=== PATIENT | male | born 1960 | race Hispanic/Latino ===

== ENCOUNTER 2024-03-15 09:36 | Inpatient (IN) | payer OTHER, MEDICARE ==
[~2024-03-15] VITALS: Ht 160 cm; Wt 89.0 kg
[2024-03-15] VITALS (8 sets, daily range): BP systolic 113–148; BP diastolic 53–85; PULSE 86–102; RESP 12–20; TEMP 98.7–99; O2SAT 95–100
[2024-03-15] MEDS ORDERED: ceFAZolin SODIUM 2 GM VIAL IVPB SCH (11:30)
[2024-03-15] MEDS ORDERED: HEParin 10,000 UNIT/10ML (1,000 UNIT/ML) VIAL IV ONE (12:43)
[2024-03-15] MEDS ORDERED: EPINEPHrine PF 1MG (1:1,000) 10 MG in 0.9% NACL 250ML 240 ML IV PRN ×3 (13:30→20:00)
[2024-03-15] MEDS ORDERED: NOREPINEPHRIN 8MG/250ML NS 250 ML IV PRN (13:30)
[2024-03-15] MEDS ORDERED: aminoCAProic ACID 5,000MG VIAL 15,000 MG in 0.9% NACL 500ML IV.SOLN 420 ML IV PRN (13:30)
[2024-03-15] MEDS ORDERED: ARTIFICAL TEARS SOL 15 ML OP PRN (14:30)
[2024-03-15] MEDS ORDERED: LACTULOSE 20 GM/30 ML UDCUP PO PRN (14:30)
[2024-03-15] MEDS ORDERED: NITROGLYCERIN 0.4 MG SL TAB SL PRN ×2 (14:30)
[2024-03-15] MEDS ORDERED: guaiFENesin SUGAR-FREE 100 MG/5 ML UDCUP PO PRN (14:30)
[2024-03-15] MEDS ORDERED: hydrALAZine 25MG TABLET PO PRN (14:30)
[2024-03-15] MEDS ORDERED: polyETHYLene GLYCol 3350 17 GM POWD.PACK PO PRN (14:30)
[2024-03-15] MEDS ORDERED: acetaMINOPHEN 325 MG TAB PO PRN ×2 (14:30)
[2024-03-15] MEDS ORDERED: LOPERAMIDE HCL 2 MG CAP PO PRN (14:30)
[2024-03-15] MEDS ORDERED: ONDANSETRON 4MG INJ IV PRN (14:30)
[2024-03-15] MEDS ORDERED: doCUSate SODIUM 100 MG CAP PO PRN (14:30)
[2024-03-15] MEDS ORDERED: ONDANSETRON 4MG INJ IVP PRN (14:30)
[2024-03-15 14:41] LABS: HEMATOCRIT 46.1 % (42-54); MEAN CORPUSCULAR HEMOGLOBIN 28.7 pg (27.0-33.0); MEAN CORPUSCULAR HGB CONC 32.8 g/dL (32.0-36.0); MEAN CORPUSCULAR VOLUME 87.6 fL (79-99); RED BLOOD CELL COUNT(AUTO) 5.26 MIL/uL (4.50-6.20); RED CELL DISTRIBUTION WIDTH 12.6 % (11.0-15.5); WHITE BLOOD COUNT (AUTO) 9.3 K/uL (4.8-10.8)
[2024-03-15] MEDS ORDERED: LIDOCAINE 2G/250ML 250 ML IV ONE (14:50)
[2024-03-15 14:51] LABS: INR 1.07 (0.85-1.15); PROTHROMBIN TIME 11.5 SEC (9.6-11.6)
[2024-03-15 14:53] LABS: PARTIAL THROMBOPLASTIN TIME 27.6 SEC (26.3-35.5)
[2024-03-15 14:54] LABS: ALBUMIN 3.6 g/dL (3.5-5.0); BILIRUBIN,TOTAL 0.6 mg/dL (0.2-1.0); CREATININE 1.2 mg/dL (0.5-1.3); POTASSIUM 4.1 mmol/L (3.5-5.1); TOTAL PROTEIN, SERUM 7.9 g/dL (6.0-8.3)
[2024-03-15 15:33] LABS: HEMOGLOBIN A1C 5.8 % (4.0-6.0)
[2024-03-15] MEDS: metoPROLOL tartRATE 25 MG TAB PO ONE (16:50)
[2024-03-15] MEDS ORDERED: HEParin 10,000 UNIT/10ML (1,000 UNIT/ML) VIAL ONE ×3 (19:28→20:39)
[2024-03-15] MEDS ORDERED: LIDOCAINE PF 100MG/5ML (2%) SYRINGE 5ML ONE ×2 (19:28→20:39)
[2024-03-15] MEDS ORDERED: proPOFol 10 MG/ML 20ML VIAL IV ONE (19:28)
[2024-03-15] MEDS ORDERED: aminoCAProic ACID 5,000MG VIAL ONE (19:28)
[2024-03-15] MEDS ORDERED: FENTanyl CITRate PF 50 MCG/1 ML 20ML VIAL IJ ONE (19:28)
[2024-03-15] MEDS ORDERED: SODIUM BICARB 50MEQ 50ML VIAL 200 ML ONE (19:28)
[2024-03-15] MEDS ORDERED: PROTAMINE SULFATE 10 MG/ML 25ML VIAL IV ONE ×2 (19:28→21:38)
[2024-03-15] MEDS ORDERED: EPINEPHrine PF 1MG (1:1,000) 1 MG/ML AMP ONE (19:28)
[2024-03-15] MEDS ORDERED: NOREPINEPHRINE BITARTRATE 1 MG/1 ML ML IV ONE (19:28)
[2024-03-15] MEDS ORDERED: rocuRONium bROMide 10MG/1ML 5ML VL ONE (19:29)
[2024-03-15] MEDS ORDERED: MIDAZOLAM HCL 1 MG/ML 2ML VIAL ONE (19:29)
[2024-03-15] MEDS ORDERED: GLUCAGON 1MG KIT 1 MG ML IM PRN (19:30)
[2024-03-15] MEDS ORDERED: ALBUMIN (HUMAN) 5% 250 ML IV PRN (19:30)
[2024-03-15] MEDS ORDERED: proPOFol 1000 MG/100 ML 100 ML IV PRN (19:30)
[2024-03-15] MEDS ORDERED: CALCIUM GLUC 1GM 1 GM in 0.9%NACL 50ML 50 ML IV PRN (19:30)
[2024-03-15] MEDS ORDERED: NOREPINEPHRINE BITARTRATE 8 MG in DEXTROSE 5%-WATER 250 ML IV PRN (19:30)
[2024-03-15] MEDS ORDERED: morPHINE 2 MG SYG IV PRN (19:30)
[2024-03-15] MEDS ORDERED: 0.9%NACL 10ML VIAL IVP PRN (19:30)
[2024-03-15] MEDS ORDERED: DEXTROSE 50%-WATER 50 ML DISP.SYRIN IV PRN (19:30)
[2024-03-15] MEDS ORDERED: morPHINE 4 MG SYG IV PRN (19:30)
[2024-03-15] MEDS ORDERED: INSULIN REGULAR, HUMAN 3ML 100 UNIT in 0.9%NACL 100ML 99 ML IV SCH ×2 (19:30→20:00)
[2024-03-15] MEDS ORDERED: MAGNESIUM HYDROXIDE 30 ML/UDCUP PO PRN (19:30)
[2024-03-15] MEDS ORDERED: POTASSIUM PHOS 15 mMOL+NS250ML 250 ML IV PRN (19:30)
[2024-03-15] MEDS ORDERED: acetaMINOPHEN 650 MG SUPPOSITORY RC PRN (19:30)
[2024-03-15] MEDS ORDERED: NITROGLYCERIN 50MG/D5W 250ML 250 BOT IV SCH (19:30)
[2024-03-15] MEDS ORDERED: aminoCAProic ACID 5,000MG VIAL 15,000 MG in 0.9% NACL 250ML 250 ML IV SCH (19:30)
[2024-03-15] MEDS: ceFAZolin SODIUM 3 GM VIAL IVPB ONE ×2 (19:50)
[2024-03-15] MEDS ORDERED: ceFAZolin SODIUM 1 GM VIAL ONE (20:02)
[2024-03-15] MEDS ORDERED: HEParin-NS 1,000 UNIT/500 ML 500 ML IV ONE (20:02)
[2024-03-15] MEDS ORDERED: PAPAVERINE HCL 30 MG/ML 2ML VIAL ONE (20:03)
[2024-03-15] MEDS ORDERED: AMIOdarone 150MG VIAL ONE (20:32)
[2024-03-15] MEDS ORDERED: ATROPINE 1MG SYG IVP ONE (20:37)
[2024-03-15] MEDS ORDERED: SODIUM BICARB 50MEQ 50ML VIAL 100 ML ONE (20:38)
[2024-03-15] MEDS ORDERED: FAMOTIDINE 20MG TAB PO SCH (21:00)
[2024-03-15] MEDS ORDERED: metoPROLOL tartRATE 25 MG TAB PO SCH (21:00)
[2024-03-15] MEDS ORDERED: VASOpressin 20 UNITS/ML 1ML VIAL ONE (21:13)
[2024-03-15] MEDS ORDERED: POTASSIUM CHLORIDE 20MEQ/100ML 100 ML IV ONE ×2 (21:30→22:01)
[2024-03-15] MEDS ORDERED: SODIUM BICARB 50MEQ 50ML VIAL 50 ML ONE (21:38)
[2024-03-15 23:07] LABS: HEMATOCRIT 39.4 % (42-54); MEAN CORPUSCULAR HEMOGLOBIN 28.3 pg (27.0-33.0); MEAN CORPUSCULAR VOLUME 85.8 fL (79-99); PLATELET COUNT (AUTO) 287 K/uL (130-400); RED BLOOD CELL COUNT(AUTO) 4.59 MIL/uL (4.50-6.20); RED CELL DISTRIBUTION WIDTH 12.8 % (11.0-15.5)
[2024-03-15 23:13] LABS: WHITE BLOOD COUNT (AUTO) 35.3 K/uL (4.8-10.8)
[2024-03-15] MEDS: dexmedeTOMIDine 400MCG/NS100ML IV SCH (23:15)
[2024-03-15] MEDS: INSULIN REGULAR, HUMAN 3ML 100 UNIT in 0.9%NACL 100ML 99 ML IV SCH (23:16)
[2024-03-15 23:17] LABS: INR 1.18 (0.85-1.15); PROTHROMBIN TIME 12.6 SEC (9.6-11.6)
[2024-03-15 23:18] LABS: PARTIAL THROMBOPLASTIN TIME 23.4 SEC (26.3-35.5)
[2024-03-15 23:19] LABS: CREATININE 1.3 mg/dL (0.5-1.3); MAGNESIUM 1.7 mg/dL (1.80-2.40); PHOSPHORUS 4.7 mg/dL (2.5-4.9); POTASSIUM 4.1 mmol/L (3.5-5.1)
[2024-03-15] MEDS: 0.9%NACL 1000ML 1,000 ML IV SCH (23:45)
[2024-03-15] MEDS: dexmedeTOMIDine 400MCG/NS100ML IV ONE (23:46)
[2024-03-15] MEDS: FAMOTIDINE 20MG VIAL IV SCH (23:51)
[2024-03-15] MEDS: doCUSate SODIUM 100 MG CAP PO ONE (23:52)
[2024-03-15] MEDS: ASPIRIN 81MG CHEW TAB NG ONE (23:53)
[2024-03-15] MEDS: ALBUMIN (HUMAN) 5% 250 ML IV SCH (23:54)
[2024-03-15] MEDS: FAMOTIDINE 20MG VIAL IV ONE (23:58)
[2024-03-16] VITALS (120 sets, daily range): BP systolic 82–134; BP diastolic 51–66; PULSE 76–101; RESP 7–33; TEMP 99.6–100.7; O2SAT 18–100
[2024-03-16] MEDS ORDERED: acetaMINOPHEN 1,000 MG/100 ML VIAL IV SCH
[2024-03-16] MEDS: 0.9% NACL 500ML IV.SOLN 500 ML IV SCH (00:04)
[2024-03-16] MEDS: MAGNESIUM 2GM PREMIX 50ML 50 ML IV PRN (00:12)
[2024-03-16] MEDS: MAGNESIUM 2GM PREMIX 50ML 50 ML IV ONE (00:16)
[2024-03-16] MEDS: ceFAZolin SODIUM 2 GM VIAL IVPB SCH (00:29)
[2024-03-16] MEDS: SODIUM BICARB 50MEQ 50ML VIAL IV PRN (00:31)
[2024-03-16] MEDS: SODIUM BICARB 50MEQ 50ML VIAL 100 ML ONE (01:24)
[2024-03-16 01:33] LABS: BAND NEUTROPHILS % (MANUAL) 5 % (0-2); LYMPHOCYTES % (MANUAL) 8 % (22-44); METAMYELOCYTES % 1 % (0-0); MONOCYTES % (MANUAL) 5 % (2-9); SEGMENTED NEUTROPHILS % 81 % (40-70); TOTAL CELLS COUNTED 100
[2024-03-16 01:34] LABS: MAN.DIFF COMMENT-IMPRESSION MANUAL DIFFERENTIAL; PLATELET MORPHOLOGY COMMENT ADEQUATE
[2024-03-16] MEDS: POTASSIUM CHLORIDE 20MEQ/100ML 100 ML IV PRN (03:31)
[2024-03-16 03:57] LABS: ABG BASE EXCESS -1.7 mmol/L (-2.0-3.0); ABG HCO3 21.3 mmol/L (21.0-28.0); ABG OXYGEN SATURATION 99.5 % (94.0-98.0); ABG PCO2 31 mmHg (35-48); ABG PH 7.457 (7.350-7.450); CARBON MONOXIDE 0.3 % (0.5-1.5); DEVICE COMMENT 4; HHb 0.5; PO2, ARTERIAL BG 471.3 mmHg (83.0-108.0)
[2024-03-16 03:57] LABS: ABG BASE EXCESS -2.8 mmol/L (-2.0-3.0); ABG OXYGEN SATURATION 99.9 % (94.0-98.0); ABG PCO2 38 mmHg (35-48); ABG PH 7.376 (7.350-7.450); CARBON MONOXIDE 0.5 % (0.5-1.5); DEVICE COMMENT 1; HHb 0.1; PO2, ARTERIAL BG 476.6 mmHg (83.0-108.0)
[2024-03-16 03:57] LABS: ABG BASE EXCESS 0.2 mmol/L (-2.0-3.0); ABG HCO3 24.3 mmol/L (21.0-28.0); ABG OXYGEN SATURATION 99.3 % (94.0-98.0); ABG PCO2 37 mmHg (35-48); CARBON MONOXIDE 0.7 % (0.5-1.5); HHb 0.7; PO2, ARTERIAL BG 251.5 mmHg (83.0-108.0); VENT MODE, BG SIMV,PS10 (ROOM AIR)
[2024-03-16 03:57] LABS: ABG BASE EXCESS 0.2 mmol/L (-2.0-3.0); ABG OXYGEN SATURATION 99.1 % (94.0-98.0); ABG PCO2 36 mmHg (35-48); CARBON MONOXIDE 0.6 % (0.5-1.5); DEVICE COMMENT ALINE; HHb 0.9; PO2, ARTERIAL BG 198.6 mmHg (83.0-108.0); VENT MODE, BG SIMVPS10 (ROOM AIR)
[2024-03-16 03:57] LABS: ABG BASE EXCESS -0.6 mmol/L (-2.0-3.0); ABG HCO3 22.1 mmol/L (21.0-28.0); ABG OXYGEN SATURATION 98.8 % (94.0-98.0); ABG PCO2 31 mmHg (35-48); ABG PH 7.473 (7.350-7.450); CARBON MONOXIDE 0.3 % (0.5-1.5); HHb 1.2; VENT MODE, BG SIMV,PS10 (ROOM AIR)
[2024-03-16 03:57] LABS: ABG BASE EXCESS 2.7 mmol/L (-2.0-3.0); ABG HCO3 26.4 mmol/L (21.0-28.0); ABG OXYGEN SATURATION 99.6 % (94.0-98.0); ABG PCO2 38 mmHg (35-48); ABG PH 7.465 (7.350-7.450); CARBON MONOXIDE 0 % (0.5-1.5); DEVICE COMMENT 3; HHb 0.4; PO2, ARTERIAL BG > 500.0 mmHg (83.0-108.0)
[2024-03-16 03:57] LABS: ABG BASE EXCESS -2.3 mmol/L (-2.0-3.0); ABG HCO3 23.4 mmol/L (21.0-28.0); ABG OXYGEN SATURATION 99.7 % (94.0-98.0); ABG PCO2 44 mmHg (35-48); ABG PH 7.349 (7.350-7.450); CARBON MONOXIDE 0.3 % (0.5-1.5); DEVICE COMMENT 2; HHb 0.3; PO2, ARTERIAL BG > 500.0 mmHg (83.0-108.0)
[2024-03-16 03:58] LABS: ABG BASE EXCESS -1.2 mmol/L (-2.0-3.0); ABG HCO3 23.4 mmol/L (21.0-28.0); ABG OXYGEN SATURATION 99.7 % (94.0-98.0); ABG PCO2 39 mmHg (35-48); ABG PH 7.394 (7.350-7.450); CARBON MONOXIDE 0.7 % (0.5-1.5); HHb 0.3; PO2, ARTERIAL BG > 500.0 mmHg (83.0-108.0); VENT MODE, BG SIMV, PS10 (ROOM AIR)
[2024-03-16 03:58] LABS: ABG BASE EXCESS -3.1 mmol/L (-2.0-3.0); ABG OXYGEN SATURATION 99.5 % (94.0-98.0); ABG PCO2 35 mmHg (35-48); CARBON MONOXIDE 0.6 % (0.5-1.5); HHb 0.5; PO2, ARTERIAL BG > 500.0 mmHg (83.0-108.0); VENT MODE, BG SIMV,PS10 (ROOM AIR)
[2024-03-16 04:00] LABS: ABG BASE EXCESS 0.6 mmol/L (-2.0-3.0); ABG HCO3 24.3 mmol/L (21.0-28.0); ABG PCO2 36 mmHg (35-48); ABG PH 7.442 (7.350-7.450); CARBON MONOXIDE 1.3 % (0.5-1.5); DEVICE COMMENT RR ALICIA; HHb 5.9; PO2, ARTERIAL BG 68.9 mmHg (83.0-108.0); VENT MODE, BG RA (ROOM AIR)
[2024-03-16 04:07] LABS: BASOPHILS # (AUTO) 0.03 K/uL (0.00-0.20); BASOPHILS % (AUTO) 0.1 % (0.0-5.0); EOSINOPHILS # (AUTO) 0.01 K/uL (0.00-0.70); HEMATOCRIT 36.3 % (42-54); IMMATURE GRANULOCYTE ABSOLUTE 0.09 K/uL (0-1); LYMPHOCYTES # (AUTO) 1.3 K/uL (1.0-4.8); LYMPHOCYTES % (AUTO) 6.6 % (21.0-51.0); MEAN CORPUSCULAR HEMOGLOBIN 28.2 pg (27.0-33.0); MEAN CORPUSCULAR HGB CONC 33.1 g/dL (32.0-36.0); MEAN CORPUSCULAR VOLUME 85.4 fL (79-99); MONOCYTES # (AUTO) 1.5 K/uL (0.1-1.0); MONOCYTES % (AUTO) 7.1 % (3.0-13.0); NEUTROPHILS # (AUTO) 17.5 K/uL (1.8-7.7); NEUTROPHILS % (AUTO) 85.8 % (40.0-77.0); PLATELET COUNT (AUTO) 256 K/uL (130-400); RED BLOOD CELL COUNT(AUTO) 4.25 MIL/uL (4.50-6.20); RED CELL DISTRIBUTION WIDTH 12.9 % (11.0-15.5); WHITE BLOOD COUNT (AUTO) 20.4 K/uL (4.8-10.8)
[2024-03-16 04:11] LABS: ABG BASE EXCESS 1.1 mmol/L (-2.0-3.0); ABG HCO3 24.9 mmol/L (21.0-28.0); ABG OXYGEN SATURATION 98.8 % (94.0-98.0); ABG PCO2 37 mmHg (35-48); ABG PH 7.444 (7.350-7.450); CARBON MONOXIDE 0.6 % (0.5-1.5); HHb 1.2; PO2, ARTERIAL BG 154.3 mmHg (83.0-108.0); VENT MODE, BG SIMV,PS10 (ROOM AIR)
[2024-03-16 04:33] LABS: CREATININE 1.6 mg/dL (0.5-1.3); MAGNESIUM 2.1 mg/dL (1.80-2.40); PHOSPHORUS 2.5 mg/dL (2.5-4.9); POTASSIUM 3.8 mmol/L (3.5-5.1)
[2024-03-16 04:49] LABS: INR 1.1 (0.85-1.15); PROTHROMBIN TIME 11.8 SEC (9.6-11.6)
[2024-03-16 04:50] LABS: PARTIAL THROMBOPLASTIN TIME 26.5 SEC (26.3-35.5)
[2024-03-16 05:17] LABS: ABG BASE EXCESS 2.9 mmol/L (-2.0-3.0); ABG HCO3 26.2 mmol/L (21.0-28.0); ABG OXYGEN SATURATION 98.4 % (94.0-98.0); ABG PCO2 36 mmHg (35-48); ABG PH 7.477 (7.350-7.450); CARBON MONOXIDE 0.1 % (0.5-1.5); HHb 1.6; PO2, ARTERIAL BG 148.6 mmHg (83.0-108.0); VENT MODE, BG SIMV,PS10 (ROOM AIR)
[2024-03-16 05:23] LABS: B-TYPE NATRIURETIC PEPTIDE 83 pg/mL (0-100)
[2024-03-16 06:20] LABS: ABG BASE EXCESS 3.8 mmol/L (-2.0-3.0); ABG HCO3 27.6 mmol/L (21.0-28.0); ABG OXYGEN SATURATION 98.6 % (94.0-98.0); ABG PCO2 39 mmHg (35-48); ABG PH 7.472 (7.350-7.450); CARBON MONOXIDE 0.4 % (0.5-1.5); HHb 1.4; PO2, ARTERIAL BG 145.7 mmHg (83.0-108.0); VENT MODE, BG SIMV PS10 (ROOM AIR)
[2024-03-16] MEDS ORDERED: COMPOUND IV MISC 1 EACH IVSOLN MISC PRN ×2 (07:00→12:30)
[2024-03-16 07:27] LABS: ABG BASE EXCESS 2.8 mmol/L (-2.0-3.0); ABG HCO3 26.1 mmol/L (21.0-28.0); ABG OXYGEN SATURATION 98.7 % (94.0-98.0); ABG PCO2 36 mmHg (35-48); ABG PH 7.481 (7.350-7.450); CARBON MONOXIDE 0.4 % (0.5-1.5); HHb 1.3; PO2, ARTERIAL BG 148.6 mmHg (83.0-108.0); VENT MODE, BG SIMV PS10 (ROOM AIR)
[2024-03-16] MEDS: acetaMINOPHEN 325 MG TAB PO PRN (07:45)
[2024-03-16] MEDS ORDERED: ASPIRIN 81 MG EC TAB PO SCH (09:00)
[2024-03-16] MEDS ORDERED: furoSEMIDE 20MG VIAL IV SCH (09:00)
[2024-03-16 09:54] LABS: ABG BASE EXCESS 3.4 mmol/L (-2.0-3.0); ABG HCO3 26.7 mmol/L (21.0-28.0); ABG OXYGEN SATURATION 98.8 % (94.0-98.0); ABG PCO2 36 mmHg (35-48); ABG PH 7.485 (7.350-7.450); CARBON MONOXIDE 0.6 % (0.5-1.5); HHb 1.2; PO2, ARTERIAL BG 151.1 mmHg (83.0-108.0); VENT MODE, BG SIMV PS10 (ROOM AIR)
[2024-03-16] MEDS: FAMOTIDINE 20MG VIAL IV ONE (10:07)
[2024-03-16 10:49] LABS: CREATININE 1.3 mg/dL (0.5-1.3); MAGNESIUM 1.9 mg/dL (1.80-2.40); PHOSPHORUS 1.9 mg/dL (2.5-4.9)
[2024-03-16] MEDS: acetaMINOPHEN 1,000 MG/100 ML VIAL IV SCH (11:25)
[2024-03-16] MEDS: furoSEMIDE 20MG VIAL IV SCH (12:19)
[2024-03-16] MEDS ORDERED: COMPOUND IV REFRIGERATED 1 EACH IVSOLN MISC PRN (12:30)
[2024-03-16] MEDS: POTASSIUM PHOS 15 mMOL+NS250ML 250 ML IV PRN (12:44)
[2024-03-16] MEDS ORDERED: atorVAStatin 20 MG TABLET PO SCH (21:00)
[2024-03-16] MEDS: atorVAStatin 20 MG TABLET PO SCH (21:39)
[2024-03-16] MEDS: ASPIRIN 81 MG EC TAB PO SCH (21:40)
[2024-03-16] MEDS: traMADol HCL 50 MG TABLET PO PRN (21:40)
[2024-03-16 22:05] LABS: ABG BASE EXCESS -0.4 mmol/L (-2.0-3.0); ABG HCO3 23.5 mmol/L (21.0-28.0); ABG PCO2 36 mmHg (35-48); ABG PH 7.429 (7.350-7.450); CARBON MONOXIDE 0.5 % (0.5-1.5); PO2, ARTERIAL BG 107.1 mmHg (83.0-108.0); VENT MODE, BG CAFM (ROOM AIR)
[2024-03-16] MEDS: NOREPINEPHRINE BITARTRATE 8 MG in 0.9% NACL 250ML 250 ML IV PRN (23:46)
[2024-03-17] VITALS (72 sets, daily range): BP systolic 95–149; BP diastolic 57–82; PULSE 88–115; RESP 13–45; TEMP 98.6–99.4; O2SAT 96–100
[2024-03-17 04:56] LABS: HEMATOCRIT 37.4 % (42-54); MEAN CORPUSCULAR HGB CONC 32.1 g/dL (32.0-36.0); MEAN CORPUSCULAR VOLUME 87.4 fL (79-99); RED BLOOD CELL COUNT(AUTO) 4.28 MIL/uL (4.50-6.20); RED CELL DISTRIBUTION WIDTH 13.3 % (11.0-15.5)
[2024-03-17 05:12] LABS: CREATININE 1.2 mg/dL (0.5-1.3); MAGNESIUM 2.2 mg/dL (1.80-2.40); PHOSPHORUS 3.8 mg/dL (2.5-4.9); POTASSIUM 3.8 mmol/L (3.5-5.1)
[2024-03-17] MEDS: furoSEMIDE 20 MG TABLET PO SCH (08:32)
[2024-03-17] MEDS ORDERED: furoSEMIDE 20 MG TABLET PO SCH (09:00)
[2024-03-17] MEDS: INSULIN humuLIN R 100 UNIT/ML 3ML SQ SCH (11:30)
[2024-03-17] MEDS: metoPROLOL tartRATE 25 MG TAB PO ONE (13:03)
[2024-03-17] MEDS: atorVAStatin 40 MG TABLET PO SCH (20:29)
[2024-03-17] MEDS: metoPROLOL tartRATE 25 MG TAB PO SCH (20:30)
[2024-03-17] MEDS: traMADol HCL 50 MG TABLET PO PRN (20:44)
[2024-03-17] MEDS: ONDANSETRON 4MG INJ IV PRN (22:24)
[2024-03-18] VITALS (42 sets, daily range): BP systolic 93–134; BP diastolic 51–99; PULSE 90–104; RESP 14–40; TEMP 97.7–98.5; O2SAT 94–100
[2024-03-18 05:04] LABS: CREATININE 1.2 mg/dL (0.5-1.3); HEMATOCRIT 39.5 % (42-54); MEAN CORPUSCULAR HEMOGLOBIN 28.6 pg (27.0-33.0); MEAN CORPUSCULAR HGB CONC 31.4 g/dL (32.0-36.0); POTASSIUM 3.7 mmol/L (3.5-5.1); RED BLOOD CELL COUNT(AUTO) 4.34 MIL/uL (4.50-6.20); RED CELL DISTRIBUTION WIDTH 13.1 % (11.0-15.5); WHITE BLOOD COUNT (AUTO) 16.4 K/uL (4.8-10.8)
[2024-03-18] MEDS: KCL 20 MEQ ERTAB PO ONE (15:27)
[2024-03-18] MEDS ORDERED: POTASSIUM CHLORIDE 20MEQ/100ML 100 ML IV PRN (15:30)
[2024-03-18] MEDS ORDERED: POTASSIUM CHLORIDE 10% ELIXIR 20 MEQ/15 ML UDCUP PO PRN (15:30)
[2024-03-18] MEDS: LACTULOSE 20 GM/30 ML UDCUP PO PRN (18:16)
[2024-03-18] MEDS: metoPROLOL tartRATE 25 MG TAB PO SCH (21:07)
[2024-03-18] MEDS: FAMOTIDINE 20MG TAB PO SCH (21:08)
[2024-03-19] VITALS (13 sets, daily range): BP systolic 101–155; BP diastolic 56–91; PULSE 72–99; RESP 14–21; TEMP 98.2–98.5; O2SAT 92–99
[2024-03-19 03:31] LABS: MEAN CORPUSCULAR HEMOGLOBIN 28.1 pg (27.0-33.0); MEAN CORPUSCULAR HGB CONC 31.8 g/dL (32.0-36.0); MEAN CORPUSCULAR VOLUME 88.4 fL (79-99); RED BLOOD CELL COUNT(AUTO) 4.3 MIL/uL (4.50-6.20); RED CELL DISTRIBUTION WIDTH 12.7 % (11.0-15.5); WHITE BLOOD COUNT (AUTO) 16.1 K/uL (4.8-10.8)
[2024-03-19 03:39] LABS: CREATININE 1.2 mg/dL (0.5-1.3); POTASSIUM 3.3 mmol/L (3.5-5.1)
[2024-03-19] MEDS: KCL 20 MEQ ERTAB PO PRN (05:02)
[2024-03-19] MEDS: ENOXAPARIN SODIUM 30 MG/0.3 ML SQ SCH (09:39)
[2024-03-20] VITALS (8 sets, daily range): BP systolic 110–139; BP diastolic 64–82; PULSE 82–97; RESP 16–20; TEMP 98.3–99.4; O2SAT 95–99
[2024-03-20 03:59] LABS: HEMATOCRIT 37.5 % (42-54); MEAN CORPUSCULAR HEMOGLOBIN 28.4 pg (27.0-33.0); MEAN CORPUSCULAR HGB CONC 32.5 g/dL (32.0-36.0); MEAN CORPUSCULAR VOLUME 87.2 fL (79-99); RED BLOOD CELL COUNT(AUTO) 4.3 MIL/uL (4.50-6.20); RED CELL DISTRIBUTION WIDTH 12.5 % (11.0-15.5); WHITE BLOOD COUNT (AUTO) 12.5 K/uL (4.8-10.8)
[2024-03-20 04:22] LABS: POTASSIUM 3.2 mmol/L (3.5-5.1)
[2024-03-21] VITALS (11 sets, daily range): BP systolic 100–123; BP diastolic 58–78; PULSE 77–106; RESP 18–22; TEMP 97.7–98.9; O2SAT 96–98
[2024-03-21 03:55] LABS: CREATININE 1.1 mg/dL (0.5-1.3); POTASSIUM 3.1 mmol/L (3.5-5.1)
[2024-03-22] VITALS (10 sets, daily range): BP systolic 114–138; BP diastolic 63–86; PULSE 71–96; RESP 16–22; TEMP 97.8–100.2; O2SAT 96–99
[2024-03-22 13:11] LABS: POTASSIUM 3.5 mmol/L (3.5-5.1)
[2024-03-23] VITALS (9 sets, daily range): BP systolic 114–123; BP diastolic 67–88; PULSE 70–100; RESP 18; TEMP 98–98.8; O2SAT 96–97
[2024-03-23 03:39] LABS: BASOPHILS # (AUTO) 0.09 K/uL (0.00-0.20); BASOPHILS % (AUTO) 0.6 % (0.0-5.0); EOSINOPHILS # (AUTO) 0.85 K/uL (0.00-0.70); EOSINOPHILS % (AUTO) 5.8 % (0.0-8.0); HEMATOCRIT 37.2 % (42-54); IMMATURE GRANULOCYTE ABSOLUTE 0.25 K/uL (0-1); LYMPHOCYTES # (AUTO) 3.6 K/uL (1.0-4.8); LYMPHOCYTES % (AUTO) 24.2 % (21.0-51.0); MEAN CORPUSCULAR HEMOGLOBIN 28.3 pg (27.0-33.0); MEAN CORPUSCULAR HGB CONC 33.1 g/dL (32.0-36.0); MEAN CORPUSCULAR VOLUME 85.7 fL (79-99); MONOCYTES # (AUTO) 0.9 K/uL (0.1-1.0); MONOCYTES % (AUTO) 5.9 % (3.0-13.0); NEUTROPHILS # (AUTO) 9.1 K/uL (1.8-7.7); NEUTROPHILS % (AUTO) 61.8 % (40.0-77.0); PLATELET COUNT (AUTO) 407 K/uL (130-400); RED BLOOD CELL COUNT(AUTO) 4.34 MIL/uL (4.50-6.20); RED CELL DISTRIBUTION WIDTH 12.8 % (11.0-15.5); WHITE BLOOD COUNT (AUTO) 14.7 K/uL (4.8-10.8)
[2024-03-23 03:49] LABS: CREATININE 1.1 mg/dL (0.5-1.3); POTASSIUM 3.2 mmol/L (3.5-5.1)
[2024-03-23 04:16] LABS: B-TYPE NATRIURETIC PEPTIDE 144 pg/mL (0-100)
[2024-03-23 04:19] LABS: LYMPHOCYTES % (MANUAL) 25 % (22-44); MAN.DIFF COMMENT-IMPRESSION MANUAL DIFFERENTIAL; MONOCYTES % (MANUAL) 5 % (2-9); REACTIVE LYMPHOCYTES 1 % (0-0); SEGMENTED NEUTROPHILS % 69 % (40-70); TOTAL CELLS COUNTED 100
[2024-03-23 04:23] LABS: PLATELET MORPHOLOGY COMMENT SLIGHT INCREASED
[2024-03-23 08:45] LABS: ABG BASE EXCESS 0.3 mmol/L (-2.0-3.0); ABG HCO3 24.3 mmol/L (21.0-28.0); ABG OXYGEN SATURATION 95.8 % (94.0-98.0); ABG PCO2 38 mmHg (35-48); ABG PH 7.428 (7.350-7.450); DEVICE COMMENT RR TANYA; HHb 4.1; PO2, ARTERIAL BG 80.4 mmHg (83.0-108.0); VENT MODE, BG RA (ROOM AIR)
[2024-03-23] MEDS: ZOSYN 3.375GM +NS 50ML IV SCH (09:39)
== END 2024-03-24 00:05 | DRG 235 ==
LOC: 2DH 13:01 → 2CV 20:05 → 2DH 03-18 17:21
PROVIDERS: ADMIT Internal Medicine Critical Care Medicine; ATTEND Internal Medicine Critical Care Medicine
PROC: B24BZZ4 Ultrasonography of Heart with Aorta, Transesophageal (ICD-10-PCS; 2024-03-15)
PROC: 021009W Bypass Coronary Artery, One Artery from Aorta with Autologous Venous Tissue, Open Approach (ICD-10-PCS; principal; 2024-03-15 19:20)
PROC: 02100Z9 Bypass Coronary Artery, One Artery from Left Internal Mammary, Open Approach (ICD-10-PCS; 2024-03-15 19:20)
PROC: 06BQ4ZZ Excision of Left Saphenous Vein, Percutaneous Endoscopic Approach (ICD-10-PCS; 2024-03-15 19:20)
PROC: 5A09357 Assistance with Respiratory Ventilation, Less than 24 Consecutive Hours, Continuous Positive Airway Pressure (ICD-10-PCS; 2024-03-17)
PROC: 5A09357 Assistance with Respiratory Ventilation, Less than 24 Consecutive Hours, Continuous Positive Airway Pressure (ICD-10-PCS; 2024-03-18)
PROC: 5A09357 Assistance with Respiratory Ventilation, Less than 24 Consecutive Hours, Continuous Positive Airway Pressure (ICD-10-PCS; 2024-03-20)
DX: I25.10 Atherosclerotic heart disease of native coronary artery without angina pectoris (principal); N17.0 Acute kidney failure with tubular necrosis; F05 Delirium due to known physiological condition; R65.10 Systemic inflammatory response syndrome (SIRS) of non-infectious origin without acute organ dysfunction; E66.01 Morbid (severe) obesity due to excess calories; K76.0 Fatty (change of) liver, not elsewhere classified; E78.00 Pure hypercholesterolemia, unspecified; D72.829 Elevated white blood cell count, unspecified; E87.70 Fluid overload, unspecified; G47.30 Sleep apnea, unspecified; J98.4 Other disorders of lung; Z79.82 Long term (current) use of aspirin; Z87.891 Personal history of nicotine dependence; Z79.899 Other long term (current) drug therapy; Z68.34 Body mass index [BMI] 34.0-34.9, adult; Z79.02 Long term (current) use of antithrombotics/antiplatelets
CPT/HCPCS: 36415; 36600; 71045; 80048; 80053; 80061; 82140; 82330; 82435; 82803; 82947; 82948; 83036; 83605; 83735; 83880; 84100; 84132; 84145; 84295; 85018; 85025; 85027; 85347; 85384; 85610; 85730; 86850; 86900; 86901; 86923; 87641; 93005; 93312; 93325; 93880; 94002; 94003; 94010; 94660; A4357; A7048; G0378; J0171; J0282; J0461; J0612; J0690; J1644; J1650; J1815; J1940; J2001; J2250; J2405; J2440; J2543; J2704; J2720; J3010; J3475; J3480; J3490; J7030; J7040; J7120; P9045; A4215; A4315; A4452; A4510; A4600; A4649; A6204; A6219; C1713; C1776